=== PATIENT | female | born 1935 | race Caucasian/White ===

== ENCOUNTER → 2017-04-24 | Outpatient (CLI) | payer MEDICARE ==
--- NOTE | 2017-04-25 10:11 | ECHOF ---
Referral Reason:A Fib Z47.2 MEASUREMENTS -------- HEIGHT: 162.6 cm WEIGHT: 71.2 kg BP: IVSd: 1.1 cm (0.6 - 1.1) LVIDd: 4.9 cm (3.9 - 5.3) LVPWd: 0.7 cm (0.6 - 1.1) IVSs: 1.4 cm LVIDs: 3.7 cm LVPWs: 0.8 cm LA Diam: 3.9 cm (2.7 - 3.8) LAESV Index (A-L): 50.47 ml/m Ao Diam: 3.0 cm (2.0 - 3.7) AV Cusp: 1.8 cm (1.5 - 2.6) LA Diam: 3.9 cm (2.7 - 3.8) MV EXCURSION: 21.996 mm (> 18.000) MV EF SLOPE: 56 mm/s (70 - 150) EPSS: 0.3 cm MV E Bob: 0.95 m/s MV DecT: 88 ms MV A Bob: 0.34 m/s MV E/A Ratio: 2.78 AR PHT: 463 ms RAP: 5.00 mmHg RVSP: 39.34 mmHg FINDINGS -------- Atrial fibrillation. This was a technically good study. LV size, wall thickness and systolic function are normal, with an EF greater than 55%. The right ventricle is normal in size. LA is severely dilated >40 ml/m2 The right atrial size is normal. There is mild aortic valve sclerosis. There is mild aortic regurgitation. The mitral valve leaflets are mildly thickened. Moderate mitral regurgitation is present. Mild tricuspid regurgitation present. There is mild pulmonary hypertension. The right ventricular systolic pressure, as measured by Doppler, is 39.34mmHg. There is no pulmonic regurgitation present. The aortic root size is normal. There is no pericardial effusion. CONCLUSIONS -------- 1. LV size, wall thickness and systolic function are normal, with an EF greater than 55%. 2. LA is severely dilated >40 ml/m2 3. There is mild aortic valve sclerosis. 4. There is mild aortic regurgitation. 5. The mitral valve leaflets are mildly thickened. 6. Moderate mitral regurgitation is present. 7. Mild tricuspid regurgitation present. 8. There is mild pulmonary hypertension. 9. The right ventricular systolic pressure, as measured by Doppler, is 39.34mmHg. 10. There is no pulmonic regurgitation present. ORDER TAKERS SUPERVISOR: Cele Hinds RDCS
== END | disposition home or self-care (01) ==
LOC: RADECHMAIN 13:45
PROVIDERS: ATTEND Internal Medicine
DX: I08.3 Combined rheumatic disorders of mitral, aortic and tricuspid valves (principal); I48.91 Unspecified atrial fibrillation; I10 Essential (primary) hypertension; I27.20 Pulmonary hypertension, unspecified
CPT/HCPCS: 93306

== ENCOUNTER 2019-10-07 13:09 | Emergency (ER) | payer MEDICARE ==
[2019-10-07 13:18] VITALS: RESP 18; TEMP 97.9
[2019-10-07] MEDS ORDERED: KETOROLAC 30 MG/ML 1 ML VIAL IM STA (13:58)
--- NOTE | 2019-10-07 14:52 | XR ---
EXAMINATION TYPE: XR wrist complete LT DATE OF EXAM: 10/07/2019 CLINICAL HISTORY: Fall injury with pain. TECHNIQUE: Frontal, lateral , scaphoid, and oblique images of the left wrist are obtained. COMPARISON: Prior left wrist x-ray September 27, 2015 FINDINGS: Demineralization is redemonstrated. Interval healing of comminuted intra-articular fracture distal radial meta-epiphysis. New scapholunate joint widening suggests possible chronic ligamentous injury. Volar angulation of distal radius without new acute fracture. Moderate to advanced narrowing base of first metacarpal redemonstrated. Overlying soft tissue is unremarkable. IMPRESSION: As above.
--- NOTE | 2019-10-07 14:53 | XR ---
EXAMINATION TYPE: XR Hip Complete LT DATE OF EXAM: 10/07/2019 CLINICAL HISTORY: Fall injury with pain. TECHNIQUE: AP and frogleg views of the left hip are obtained. COMPARISON: None. FINDINGS: Slightly suboptimal due to patient's large body habitus. There is no acute fracture/disloca tion evident in the left hip. Mild to moderate axial joint space loss with mild to moderate acetabula r spurring. Overlying zipper is noted. IMPRESSION: There is no acute fracture or dislocation in the left hip.
--- NOTE | 2019-10-07 14:55 | XR ---
EXAMINATION TYPE: XR ribs LT w pa chest xray DATE OF EXAM: 10/07/2019 CLINICAL HISTORY: Chest and left-sided rib pain after fall injury. TECHNIQUE: Single frontal view of the chest is obtained. A frontal and oblique images of the left-shayy ed ribs. COMPARISON: Chest x-ray October 31, 2011. FINDINGS: There is chronic parenchymal change without suspicious new focal air space opacity, pleura l effusion, or pneumothorax seen. The cardiac silhouette size remains enlarged with atherosclerotic and ectatic aorta. The osseous structures are demineralized. Underlying scoliosis is redemonstrated . Left axillary surgical clips again seen. Dedicated images of left-sided ribs show no acute displaced fracture. IMPRESSION: 1. Chronic parenchymal changes and cardiomegaly without acute pulmonary process. 2. No acute displaced left-sided rib fractures.
--- NOTE | 2019-10-07 15:17 | ED ---
Fall HPI - General Chief Complaint: Fall Stated Complaint: Fall Time Seen by Provider: 10/07/19 13:39 Source: patient, EMS Mode of arrival: EMS - History of Present Illness Initial Comments: Patient is an 84-year-old female presenting to the emergency Department with complaints of a fall. Patient states she was standing getting something out of her refrigerator and went to turn to throw something away when she feels like her feet slipped and she fell towards the left side. Patient states she hit the left side of her body onto the kitchen island as well as a door way. She is complaining of pain in the left side of her ribs as well as left arm and left hip pain. She admits to previous bilateral knee replacements. She denies hitting her head or loss of consciousness. She denies being dizzy at the time. She has no other complaints at this time. - Related Data Home Medications Medication Instructions Recorded Confirmed Atenolol [Tenormin] 50 mg PO BID 09/27/15 09/27/15 Cholecalciferol [Vitamin D3] 2,000 unit PO DAILY 09/27/15 09/27/15 Losartan-Hctz 50-12.5 mg [Hyzaar 1 tab PO DAILY 09/27/15 09/27/15 50-12.5] Previous Rx's Medication Instructions Recorded HYDROcodone/APAP 5-325MG [[place] 1 tab PO Q6HR PRN #30 tab 09/27/15 5-325] Allergies Allergy/AdvReac Type Severity Reaction Status Date / Time Penicillins Allergy Rash/Hives Verified 10/07/19 13:18 Sulfa (Sulfonamide Allergy Rash/Hives Verified 10/07/19 13:18 Antibiotics) Review of Systems ROS Statement: Those systems with pertinent positive or pertinent negative responses have been documented in the HPI. ROS Other: All systems not noted in ROS Statement are negative. Past Medical History Past Medical History: Hypertension Additional Past Medical History / Comment(s): BREAST CANCER History of Any Multi-Drug Resistant Organisms: None Reported Past Surgical History: Breast Surgery, Hysterectomy, Tubal Ligation Additional Past Surgical History / Comment(s): LEFT/Right KNEE SURGERY, bilateral mastectomy Past Psychological History: No Psychological Hx Reported Smoking Status: Never smoker Past Alcohol Use History: None Reported Past Drug Use History: None Reported General Exam - General Exam Comments Initial Comments: GENERAL: Well-appearing, well-nourished and in no acute distress. HEAD: Atraumatic, normocephalic. EYES: Pupils equal round and reactive to light, extraocular movements intact, sclera anicteric, conjunctiva are normal. ENT: TMs normal, nares patent, oropharynx clear without exudates. Moist mucous membranes. NECK: Normal range of motion, supple without lymphadenopathy or JVD. LUNGS: Breath sounds clear to auscultation bilaterally and equal. No wheezes rales or rhonchi. Mild pain to palpation of the left side of the ribs. HEART: Regular rate and rhythm without murmurs, rubs or gallops. ABDOMEN: Soft, nontender, normoactive bowel sounds. No guarding, no rebound. No masses appreciated. : Deferred EXTREMITIES: Patient has mild pain and bruising along the left wrist over the ulnar aspect. Patient has full wrist range of motion, no swelling. Patient has full range of motion of the left shoulder. Mild pain with palpation of the lateral aspect of the left hip. Patient does have some increase in pain with hip flexion. She is neurovascular intact in upper and lower extremities. NEUROLOGICAL: Cranial nerves II through XII grossly intact. Normal speech. PSYCH: Normal mood, normal affect. SKIN: Warm, Dry, normal turgor, no rashes or lesions noted. Limitations: no limitations Course Vital Signs 10/07/19 10/07/19 10/07/19 13:14 14:43 15:24 Temperature 97.9 F Pulse Rate 55 L 67 65 Respiratory 18 18 18 Rate Blood Pressure 182/88 193/107 174/87 O2 Sat by Pulse 97 98 94 L Oximetry 10/07/19 16:50 Temperature Pulse Rate 78 Respiratory 18 Rate Blood Pressure 175/86 O2 Sat by Pulse 98 Oximetry Medical Decision Making - Medical Decision Making Patient is an 84-year-old female here for a fall today. Patient hit the left side of her body onto her Island as well as the wall. There is no head injury, no loss of consciousness, no dizziness. X-rays of the left side of the ribs, PA chest, left wrist, left hip reveal no acute fractures/dislocations. Patient was given a little bit of Toradol. She was able to stand up and walk around her room with only mild soreness. She is stable for discharge. I did recommend Tylenol or short course of anti-inflammatories for her pain. She is in agreement with this plan of care. Return parameters were discussed with the patient she verbalized understanding. Case discussed with Dr. Amin. - Lab Data Lab Results 10/07/19 Range/Units 15:25 Urine Color Light Yellow Urine Appearance Clear (Clear) Urine pH 7.0 (5.0-8.0) Ur Specific [place] 1.010 (1.001-1.035) Urine Protein Trace H (Negative) Urine Glucose (UA) Negative (Negative) Urine Ketones Negative (Negative) Urine Blood Large H (Negative) Urine Nitrite Negative (Negative) Urine Bilirubin Negative (Negative) Urine Urobilinogen <2.0 (<2.0) mg/dL Ur Leukocyte Esterase Negative (Negative) Urine RBC 143 H (0-5) /hpf Urine WBC 1 (0-5) /hpf Ur Squamous Epith Cells 5 H (0-4) /hpf Urine Bacteria Rare H (None) /hpf Urine Mucus Rare H (None) /hpf Disposition Clinical Impression: Fall, Contusion of rib on left side, Left hip pain, Contusion of left wrist Disposition: HOME SELF-CARE Condition: Stable Instructions (If sedation given, give patient instructions): Rib Contusion (ED) Additional Instructions: Please return to the Emergency Department if symptoms worsen or any other concerns. May take Motrin for discomfort or Tylenol. Follow-up with PCP. Is patient prescribed a controlled substance at d/c from ED?: No Referrals: Ahmet Diaz MD [Primary Care Provider] - 1-2 days
[2019-10-07 15:39] LABS: Appearance,Urine Clear (Clear); Bacteria,Urine Rare /hpf; Bilirubin,Urine Negative (Negative); Blood,Urine Large (Negative); Color,Urine Light Yellow; Glucose,Urine (UA) Negative (Negative); Ketones,Urine Negative (Negative); Leukocyte Esterase,Urine Negative (Negative); Mucus,Urine Rare /hpf; Nitrite,Urine Negative (Negative); Protein,Urine Trace (Negative); RBC,Urine 143 /hpf (0-5); Squamous Epithelial Cell,Urine 5 /hpf (0-4); Urobilinogen,Urine <2.0 mg/dL (<2.0); WBC,Urine 1 /hpf (0-5)
[2019-10-07] MEDS ORDERED: traMADol 50 MG STARTER PACK 3 TAB BTL PO STA (15:45)
[2019-10-07 16:51] VITALS: BP 175/86; PULSE 78
== END 2019-10-07 16:50 | disposition home or self-care (01) ==
LOC: EC 13:09
DX: S20.212A Contusion of left front wall of thorax, initial encounter (principal); S60.212A Contusion of left wrist, initial encounter; M25.552 Pain in left hip; I10 Essential (primary) hypertension; Z79.899 Other long term (current) drug therapy; Z88.0 Allergy status to penicillin; Z88.2 Allergy status to sulfonamides; Z85.3 Personal history of malignant neoplasm of breast; Z96.653 Presence of artificial knee joint, bilateral; Z90.13 Acquired absence of bilateral breasts and nipples; W01.198A Fall on same level from slipping, tripping and stumbling with subsequent striking against other object, initial encounter; Y93.89 Activity, other specified; Y92.000 Kitchen of unspecified non-institutional (private) residence as the place of occurrence of the external cause
CPT/HCPCS: 96372; 99284; 81001; 71101; 73502; 73110; J1885

== ENCOUNTER → 2020-05-12 | Outpatient (CLI) | payer MEDICARE ==
--- NOTE | 2020-05-12 08:32 | US ---
EXAMINATION TYPE: US abdomen complete DATE OF EXAM: 05/12/2020 COMPARISON: NONE CLINICAL HISTORY: R10.9 ABD PAIN. On/off abdomen pain x couple months EXAM MEASUREMENTS: Liver Length: 13.1 cm Gallbladder Wall: 0.2 cm CBD: 0.3 cm Spleen: 8.7 cm Right Kidney: 9.8 x 4.2 x 4.3 cm Left Kidney: 9.1 x 4.5 x 3.8 cm Pancreas: wnl Liver: mildly heterogeneous Gallbladder: 0.8cm mobile echogenic focus Evidence for sonographic Lozoya's sign: yes CBD: wnl Spleen: visualized portions wnl, limited by overlying bowel gas Right Kidney: fullness of renal pelvis, multiple cystic areas with largest measuring 0.9cm Left Kidney: visualized portions wnl, inferior pole limited by overlying bowel gas Upper IVC: wnl Abd Aorta: wnl The visualized liver is slightly heterogeneous. The intrahepatic portion of the IVC and visualized a bdominal aorta are within normal limits. There is 8mm nonshadowing mobile focus likely reflecting ga llstone within gallbladder lumen. No pericholecystic fluid or abnormal gallbladder wall thickening Co mmon bile duct is unremarkable. The visualized portions of the pancreas are homogenous. The spleen is unremarkable. Kidneys are symmetric and free of hydronephrosis. No renal lesions are seen. IMPRESSION: Single intraluminal gallstone without secondary ultrasound evidence for acute cholecystit is.
== END | disposition home or self-care (01) ==
LOC: RADUSWWP 07:28
PROVIDERS: ATTEND Internal Medicine
DX: K80.20 Calculus of gallbladder without cholecystitis without obstruction (principal)
CPT/HCPCS: 76700

== ENCOUNTER → 2020-09-27 | Outpatient (CLI) | payer MEDICARE ==
[2020-09-28 18:58] LABS: African American GFR (CKD) 48.1 (60.0-200.0); Anion Gap 9.4 mmol/L (4.00-12.00); Calcium 10.8 mg/dL (8.7-10.3); Carbon Dioxide 28.6 mmol/L (21.6-31.8); Non-African American GFR(CKD) 41.5 (60.0-200.0); Potassium 4.7 mmol/L (3.5-5.5)
== END | disposition home or self-care (01) ==
LOC: LABWHC1 12:18
PROVIDERS: ATTEND Nurse Practitioner Adult Health
DX: I10 Essential (primary) hypertension (principal)
CPT/HCPCS: 36415; 80048

== ENCOUNTER → 2020-11-02 | Outpatient (CLI) | payer MEDICARE | END | disposition home or self-care (01) | LOC: LABWHC1 16:18 | PROVIDERS: ATTEND Internal Medicine | DX: Z20.822 Contact with and (suspected) exposure to COVID-19 (principal); J32.9 Chronic sinusitis, unspecified | CPT/HCPCS: U0003; C9803; U0005 ==

== ENCOUNTER → 2021-01-01 | Outpatient (CLI) | payer MEDICARE ==
[2021-01-01 15:18] LABS: African American GFR (CKD) 48.1 (60.0-200.0); Anion Gap 8.9 mmol/L (4.00-12.00); Carbon Dioxide 29.1 mmol/L (21.6-31.8); Non-African American GFR(CKD) 41.5 (60.0-200.0); Potassium 3.8 mmol/L (3.5-5.5)
== END | disposition home or self-care (01) ==
LOC: LABWHC1 10:39
PROVIDERS: ATTEND Internal Medicine Interventional Cardiology
DX: I48.21 Permanent atrial fibrillation (principal)
CPT/HCPCS: 36415; 80051; 82565; 84520

== ENCOUNTER 2021-03-08 10:39 | Emergency (ER) | payer MEDICARE ==
--- NOTE | 2021-03-08 11:38 | ED ---
General Adult HPI - General Chief complaint: Head Injury Stated complaint: Fall/Head Injury Time Seen by Provider: 03/08/21 10:50 Source: patient, family, RN notes reviewed Mode of arrival: ambulatory Limitations: no limitations - History of Present Illness Initial comments: Patient is an 85-year-old female with history of A. fib, on Xarlto, presenting to the emergency department for a recheck. Patient states she had a fall about 11 days ago. She stepped over a garbage can lid and lost her balance and fell mostly onto her left side. She did fall outside, landed on cement. She is unsure if she lost consciousness or not. She seems to remember everything that happened. She did remember hitting the left side of her ribs as well as her head. She had a small cut on her left temporal area. Patient states over the next few days she started developing soreness of her left ribs and was concerned for rib injury. Yesterday she was coughing and it did cough out just a tiny bit of blood in her phlegm and got concerned. Patient has also been having intermittent headaches on the left side of her forehead where she hit. He denies any dizziness or lightheadedness, no vision changes. She was complaining a little bit of neck soreness when she fell but no neck pain today. No shortness of breath, no abdominal pain, no nausea or vomiting. She denies any pain in her lower extremities. She has no further complaints at this time. Her vitals are stable upon arrival. - Related Data Home Medications Medication Instructions Recorded Confirmed Cholecalciferol [Vitamin D3] 2,000 unit PO DAILY 09/27/15 09/27/15 Losartan-Hctz 50-12.5 mg [Hyzaar 1 tab PO DAILY 09/27/15 09/27/15 50-12.5] atenoloL [Tenormin] 50 mg PO BID 09/27/15 09/27/15 Previous Rx's Medication Instructions Recorded HYDROcodone/APAP 5-325MG [[place] 1 tab PO Q6HR PRN #30 tab 09/27/15 5-325] Allergies Allergy/AdvReac Type Severity Reaction Status Date / Time Penicillins Allergy Rash/Hives Verified 03/08/21 10:42 Sulfa (Sulfonamide Allergy Rash/Hives Verified 03/08/21 10:42 Antibiotics) Review of Systems ROS Statement: Those systems with pertinent positive or pertinent negative responses have been documented in the HPI. ROS Other: All systems not noted in ROS Statement are negative. Past Medical History Past Medical History: Atrial Fibrillation, Hypertension Additional Past Medical History / Comment(s): BREAST CANCER History of Any Multi-Drug Resistant Organisms: None Reported Past Surgical History: Breast Surgery, Hysterectomy, Tubal Ligation Additional Past Surgical History / Comment(s): LEFT/Right KNEE SURGERY, bilateral mastectomy Past Psychological History: No Psychological Hx Reported Smoking Status: Never smoker Past Alcohol Use History: None Reported Past Drug Use History: None Reported General Exam - General Exam Comments Initial Comments: GENERAL: Patient is well-developed and well-nourished. Patient is nontoxic and in no acute distress. HEAD: Atraumatic, normocephalic. There is no hematoma. EYES: Pupils equal round and reactive to light, extraocular movements intact, sclera anicteric, conjunctiva are normal. Eyelids were unremarkable. ENT: TMs normal, nares patent, oropharynx clear without exudates. Moist mucous membranes. NECK: Normal range of motion, supple without lymphadenopathy or JVD. No midline tenderness. LUNGS: Unlabored respirations. Breath sounds clear to auscultation bilaterally and equal. No wheezes rales or rhonchi. HEART: Regular rate and rhythm without murmurs, rubs or gallops. ABDOMEN: Soft, nontender, normoactive bowel sounds. No guarding, no rebound. No masses appreciated. : Deferred MUSCULOSKELETAL: Normal extremities with adequate strength and normal range of motion, no pitting or edema. No clubbing or cyanosis. She has some mild discomfort over the left anterior and lateral upper ribs. NEUROLOGICAL: Patient is alert and oriented x 3. Motor and sensory are also intact. Cranial nerves II through XII grossly intact. Symmetrical smile. Normal speech, normal gait. PSYCH: Normal mood, normal affect. SKIN: Warm, Dry, normal turgor, no rashes. Patient has an old healing yellowish colored bruise on the left bahai area, she has a has a healing very small 0.5 cm laceration to the same area. Signs of infection, no tenderness to this area. Limitations: no limitations Course Vital Signs 03/08/21 10:42 Temperature 98.4 F Pulse Rate 70 Respiratory 18 Rate Blood Pressure 158/84 O2 Sat by Pulse 97 Oximetry Medical Decision Making - Medical Decision Making Patient is an 85-year-old female here for some left-sided rib pain and some intermittent headaches after she fell about 11 days ago. She is on Xarlto secondary to A. fib. Other than some mild left-sided rib pain, she has no other acute findings on exam, no acute neuro deficits. Vitals are stable. CT of the head and C-spine showed no acute intracranial process, no acute fracture of the C-spine. X-rays of left ribs and chest reveal no displaced fractures. The resting currently. I discussed the patient she could have had a mild concussion from her fall. I recommended Tylenol and/or Motrin for any discomfort, continue with deep breathing exercises to prevent pneumonia for her rib contusions. She is agreeable with plan of care and is stable for discharge. She'll follow up with her primary care. Case discussed with Dr. Amin. Disposition Clinical Impression: Fall, Contusion of rib on left side, Headache Disposition: HOME SELF-CARE Condition: Stable Instructions (If sedation given, give patient instructions): Rib Contusion (ED) Additional Instructions: Please return to the Emergency Department if symptoms worsen or any other concerns. May take Tylenol and/or Motrin for headaches or rib pain. Recommend deep breathing exercises every hour to help prevent pneumonia. Follow-up with your primary care. Is patient prescribed a controlled substance at d/c from ED?: No Referrals: Hawa Tamayo MD [Primary Care Provider] - 1-2 days Time of Disposition: 12:46
--- NOTE | 2021-03-08 12:19 | XR ---
EXAMINATION TYPE: XR ribs LT w pa chest xray DATE OF EXAM: 03/08/2021 COMPARISON: NONE HISTORY: Pain TECHNIQUE: Single view of the chest 3 views of the ribs are submitted. FINDINGS: Chronic senescent parenchymal change. Cardiomegaly. No Evidence for pneumothorax. No evide nce for focal contusion. Mediastinal structures are midline. Evaluation of the ribs fails to demons trate evidence for displaced rib fracture or secondary sign of rib fracture. IMPRESSION: No evidence for displaced fracture of the left-sided ribs.
--- NOTE | 2021-03-08 12:23 | CT ---
EXAMINATION TYPE: CT brain paula avalos DATE OF EXAM: 03/08/2021 COMPARISON: 09/27/2015 HISTORY: Fall/head injury CT DLP: 1302.[address] of the brain was performed. The ventricles, basal cisterns and sulci overlying the cerebral convexities demonstrate mild enlargem ent. Low-density subdural fluid is seen bilaterally felt to reflect small bilateral subdural hygroma s. No acute subdural hematoma is present at this time. There is no evidence for intracranial hemorrhage or sulcal effacement. There is decreased attenuatio n about the periventricular white matter and deep white matter of both cerebral hemispheres, compatib le with chronic small vessel ischemia. No mass effects are seen. If symptoms persist consider MRI. Osseous calvarium is intact. IMPRESSION: 1. Age related atrophic and chronic small vessel ischemic change without acute intracranial process seen at this time. Low-density subdural fluid is seen bilaterally felt to reflect small bilateral richmond bdural hygromas. No acute subdural hematoma is present at this time. CT Cervical Spine: Unenhanced CT of the cervical spine was performed with bone and soft tissue window settings submitted . Coronal and sagittal reconstruction is obtained. There is normal alignment and prevertebral soft tissues. No evidence for acute cervical fracture . Scattered degenerative disc disease and spondylosis. Biapical scarring. IMPRESSION: 1. No evidence for acute fracture or subluxation of the cervical spine.
[2021-03-08 12:45] VITALS: BP 156/75; PULSE 71; RESP 20; TEMP 97.7
== END 2021-03-08 13:00 | disposition home or self-care (01) ==
LOC: EC 10:39
DX: S20.212A Contusion of left front wall of thorax, initial encounter (principal); R51.9 Headache, unspecified; I10 Essential (primary) hypertension; I48.91 Unspecified atrial fibrillation; W01.0XXA Fall on same level from slipping, tripping and stumbling without subsequent striking against object, initial encounter; Z88.0 Allergy status to penicillin; Z88.2 Allergy status to sulfonamides; Z79.899 Other long term (current) drug therapy
CPT/HCPCS: 70450; 72125; 99284

== ENCOUNTER → 2021-04-26 | Outpatient (CLI) | payer MEDICARE | END | disposition home or self-care (01) | LOC: LABWHC1 11:03 | PROVIDERS: ATTEND Internal Medicine | DX: J32.9 Chronic sinusitis, unspecified (principal) | CPT/HCPCS: U0003; C9803; U0005 ==

== ENCOUNTER → 2021-05-18 | Outpatient (CLI) | payer MEDICARE ==
[2021-05-18 13:02] LABS: Basophils % (A) 1 %; Eosinophils % (A) 0 %; HCT 34.9 % (34.0-46.0); HGB 11.4 gm/dL (11.4-16.0); Lymphocytes # (A) 0.6 k/uL (1.0-4.8); Lymphocytes % (A) 9 %; MCH 33.6 pg (25.0-35.0); MCHC 32.7 g/dL (31.0-37.0); MCV 102.7 fL (80.0-100.0); Macrocytosis Slight; Mean Platelet Volume 8.6; Monocytes # (A) 0.4 k/uL (0-1.0); Monocytes % (A) 5 %; Neutrophils # (A) 5.5 k/uL (1.3-7.7); Neutrophils % (A) 84 %; Platelet Count 243 k/uL (150-450); RDW 13.9 % (11.5-15.5); WBC 6.5 k/uL (3.8-10.6)
== END | disposition home or self-care (01) ==
LOC: LABWHC1 10:58
PROVIDERS: ATTEND Internal Medicine
DX: D64.9 Anemia, unspecified (principal)
CPT/HCPCS: 36415; 82272; 85025

== ENCOUNTER → 2022-04-15 | Outpatient (CLI) | payer MEDICARE ==
[2022-04-15 16:15] LABS: Anion Gap 13.5 mmol/L (10.00-18.00); BUN/Creat Ratio 28.2 Ratio (12.00-20.00); Blood Urea Nitrogen 39.2 mg/dL (9.0-27.0); Calcium 10.6 mg/dL (8.7-10.3); Carbon Dioxide 25.8 mmol/L (20.0-27.5); Non-African American GFR(CKD) 34.5 (60.0-200.0); Potassium 4.5 mmol/L (3.5-5.5)
== END | disposition home or self-care (01) ==
LOC: LABWHC1 09:35
PROVIDERS: ATTEND Internal Medicine Interventional Cardiology
DX: R60.0 Localized edema (principal)
CPT/HCPCS: 36415; 80048; 83880

== ENCOUNTER → 2022-05-14 | Outpatient (CLI) | payer MEDICARE ==
[2022-05-14 15:30] LABS: African American GFR (CKD) 43.3 (60.0-200.0); Anion Gap 9.3 mmol/L (10.00-18.00); BUN/Creat Ratio 21.31 Ratio (12.00-20.00); Blood Urea Nitrogen 27.7 mg/dL (9.0-27.0); Calcium 10.4 mg/dL (8.7-10.3); Carbon Dioxide 28.5 mmol/L (20.0-27.5); Non-African American GFR(CKD) 37.4 (60.0-200.0); Potassium 4.2 mmol/L (3.5-5.5)
== END | disposition home or self-care (01) ==
LOC: LABWHC1 10:53
PROVIDERS: ATTEND Nurse Practitioner Adult Health
DX: I12.9 Hypertensive chronic kidney disease with stage 1 through stage 4 chronic kidney disease, or unspecified chronic kidney disease (principal); N18.9 Chronic kidney disease, unspecified
CPT/HCPCS: 36415; 80048

== ENCOUNTER 2024-03-19 21:08 | Emergency (ER) | payer MEDICARE ==
[2024-03-19 21:13] VITALS: TEMP 97.9
--- NOTE | 2024-03-19 21:46 | ED ---
Fall HPI - General Chief Complaint: Fall Stated Complaint: Fall-Head Injury-Blood thinners Time Seen by Provider: 03/19/24 21:37 Source: patient, RN notes reviewed, old records reviewed Mode of arrival: wheelchair Limitations: no limitations - History of Present Illness Initial Comments: This is an 88-year-old female to the ER today. She is presenting for evaluation in regards to a fall. Fall up stairs fall going up the stairs with head injury. Laceration minor above left eyelid on blood thinners, Xarelto for atrial fibrillation. 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 Witnessed: yes, by family Place Fall Occurred: home Loss of Consciousness: none Prolonged Down Time?: no Symptoms Prior to Fall: none Location: head, face Severity: moderate Quality: sharp Context: tripped/slipped Associated Symptoms: denies - Related Data Home Medications Medication Instructions Recorded Confirmed Benzonatate [Tessalon Perle] 200 mg PO TID PRN 01/26/22 01/27/22 Chlorphen/Dm/Acetaminophen/GG 1 tab PO Q6H PRN 01/26/22 01/26/22 [Coricidin Hbp Day-Night Pack] Cholecalciferol [Vitamin D3 (25 50 mcg PO DAILY 01/26/22 01/26/22 Mcg = 1000 Iu)] Cyanocobalamin (Vitamin B-12) 1,000 mcg PO DAILY 01/26/22 01/26/22 [Vitamin B-12] Fluticasone Nasal [place] [Flonase 2 spr EA NOSTRIL DAILY 01/26/22 01/26/22 Nasal [place]] Rivaroxaban [Xarelto] 15 mg PO HS 01/26/22 01/26/22 amLODIPine [Norvasc] 10 mg PO HS 01/26/22 01/26/22 clindamycin HCL 600 mg PO ONCE PRN 01/26/22 01/26/22 fluocinolone acetonide oiL 5 drops BOTH EARS DAILY PRN 01/26/22 01/27/22 [Dermotic] Previous Rx's Medication Instructions Recorded Losartan [Cozaar] 50 mg PO DAILY #30 tab 01/30/22 Allergies Allergy/AdvReac Type Severity Reaction Status Date / Time Penicillins Allergy Rash/Hives Verified 03/19/24 21:13 Sulfa (Sulfonamide Allergy Rash/Hives Verified 03/19/24 21:13 Antibiotics) Review of Systems ROS Statement: Those systems with pertinent positive or pertinent negative responses have been documented in the HPI. ROS Other: All systems not noted in ROS Statement are negative. Past Medical History Past Medical History: Atrial Fibrillation, Hypertension Additional Past Medical History / Comment(s): BREAST CANCER History of Any Multi-Drug Resistant Organisms: None Reported Past Surgical History: Breast Surgery, Hysterectomy, Tubal Ligation Additional Past Surgical History / Comment(s): LEFT/Right KNEE SURGERY, bilateral mastectomy Past Anesthesia/Blood Transfusion Reactions: No Reported Reaction Past Psychological History: No Psychological Hx Reported Smoking Status: Never smoker Past Alcohol Use History: None Reported Past Drug Use History: None Reported - Past Family History Father Family Medical History: Congestive Heart Failure (CHF), Coronary Artery Disease (CAD) Mother Family Medical History: Cancer General Exam Limitations: no limitations General appearance: alert, in no apparent distress Head exam: Present: atraumatic, normocephalic, normal inspection Eye exam: Present: normal appearance, PERRL, EOMI. Absent: scleral icterus, conjunctival injection, periorbital swelling ENT exam: Present: normal exam, mucous membranes moist Neck exam: Present: normal inspection. Absent: tenderness, meningismus, lymphadenopathy Respiratory exam: Present: normal lung sounds bilaterally. Absent: respiratory distress, wheezes, rales, rhonchi, stridor Cardiovascular Exam: Present: regular rate, normal rhythm, normal heart sounds. Absent: systolic murmur, diastolic murmur, rubs, gallop, clicks GI/Abdominal exam: Present: soft, normal bowel sounds. Absent: distended, tenderness, guarding, rebound, rigid Extremities exam: Present: normal inspection, full ROM, normal capillary refill. Absent: tenderness, pedal edema, joint swelling, calf tenderness Back exam: Present: normal inspection Neurological exam: Present: alert, oriented X3, CN II-XII intact Psychiatric exam: Present: normal affect, normal mood Skin exam: Present: warm, dry, intact, normal color. Absent: rash Course Vital Signs 03/19/24 03/20/24 21:09 01:27 Temperature 97.9 F Pulse Rate 88 82 Respiratory 18 17 Rate Blood Pressure 158/74 153/105 O2 Sat by Pulse 95 93 L Oximetry - Reevaluation(s) Reevaluation #1: 03/19/24 22:20 Medical records reviewed Reevaluation #2: 03/19/24 22:20 Symptoms unchanged Reevaluation #3: 03/19/24 22:20 Patient informed of results and questions answered Reevaluation #4: Was pt. sent in by a medical professional or institution (, [facility], [employer], urgent care, hospital, or shelter...) When possible be specific @ -no Did you speak to anyone other than the patient for history (EMS, parent, family, police, friend...)? What history was obtained from this source @ -no Did you review nursing and triage notes (agree or disagree)? Why? @ -agree Are old charts reviewed (outside hosp., previous admission, EMS record, old EKG, old radiological studies, urgent care reports/EKG's, shelter records)? Report findings @ -yes Differential Diagnosis (chest pain, altered mental status, abdominal pain women, abdominal pain men, vaginal bleeding, weakness, fever, dyspnea, syncope, heada cinda, dizziness, GI bleed, back pain, seizure, CVA, palpatations, mental health, musculoskeletal)? @ -prior EKG interpreted by me (3pts min.). @ -yes X-rays interpreted by me (1pt min.). @ -no CT interpreted by me (1pt min.). @ -yes negative for acute disease U/S interpreted by me (1pt. min.). @ -no What testing was considered but not performed or refused? (CT, X-rays, U/S, labs)? Why? @ -none What meds were considered but not given or refused? Why? @ -none Did you discuss the management of the patient with other professionals (professionals i.e. , [facility], [facility], lab, RT, psych nurse, social service technician, pattern changer, teacher, chief client officer, telephonic nurse case manager)? Give summary @ -no Was smoking cessation discussed for >3mins.? @ -no Was critical care preformed (if so, how long)? @ -no Were there social determinants of health that impacted care today? How? (Homelessness, low income, unemployed, alcoholism, drug addiction, transportation, low edu. Level, literacy, decrease access to med. care, shelter, rehab)? @ -none Was there de-escalation of care discussed even if they declined (Discuss DNR or withdrawal of care, Hospice)? DNR status @ -no What co-morbidities impacted this encounter? (DM, HTN, Smoking, COPD, CAD, Cancer, CVA, ARF, Chemo, Hep., AIDS, mental health diagnosis, sleep apnea, morbid obesity)? @ -none Was patient admitted / discharged? Hospital course, mention meds given and rou te, prescriptions, significant lab abnormalities, going to OR and other pertinent info. @ - 88 female to ER for evaluation of fall with head injury on Xarelto, patient has laceration to left eyebrow repaired. Patient can be discharged home Discharge Undiagnosed new problem with uncertain prognosis? @ -no Drug Therapy requiring intensive monitoring for toxicity (Heparin, Nitro, Insulin, Cardizem)? @ -no Were any procedures done? @ -no Diagnosis/symptom? @ -Forehead laceration fall on Xarelto Acute, or Chronic, or Acute on Chronic? @ -Acute Uncomplicated (without systemic symptoms) or Complicated (systemic symptoms)? @ -Complicated Side effects of treatment? @ -no Exacerbation, Progression, or Severe Exacerbation? @ -exacerbation Poses a threat to life or bodily function? How? (Chest pain, [place], [place], pneumonia, PE, COPD, DKA, ARF, appy, cholecystitis, CVA, Diverticulitis, Homicidal, Suicidal, threat to staff... and all critical care pts) @ -yes fall on Xarelto with extremes of age Reevaluation #5: Differential Headache: Migraine, tension, cluster, carbon monoxide, central venous thrombosis, pension karma temporal arteritis, acute closure glaucoma, intercranial hemorrhage, mastoiditis, sinusitis, head injury, this is not meant to be an all-inclusive list. Procedures - Laceration Laceration #1 Consent Obtained: verbal consent Indication: laceration Site: face Size (cm): 1 Description: linear Depth: simple, single layer Size of Sutures: other (dermabond) Medical Decision Making - Medical Decision Making 88 female to ER for evaluation of fall with head injury on Xarelto, patient has laceration to left eyebrow repaired. Patient can be discharged home - Radiology Data Radiology results: report reviewed (CT brain and C-spine facial bones negative for acute disease), image reviewed Disposition Clinical Impression: Fall, Laceration of eyebrow, left, Head injury Disposition: HOME SELF-CARE Condition: Good Instructions (If sedation given, give patient instructions): Fall Prevention for Older Adults (ED), Head Injury (ED) Is patient prescribed a controlled substance at d/c from ED?: No Referrals: Kali Summers MD [Primary Care Provider] - 1-2 days Time of Disposition: 00:05
--- NOTE | 2024-03-20 00:25 | CT ---
EXAM: CT Head Without Intravenous Contrast CLINICAL HISTORY: ITS.REASON CT Reason: fall TECHNIQUE: Axial computed tomography images of the head/brain without intravenous contrast. CTDI is 25.8 mGy and DLP is 650.7 mGy-cm. This CT exam was performed using one or more of the following dose reduction techniques: automated exposure control, adjustment of the mA and/or kV according to patient size, and/or use of iterative reconstruction technique. COMPARISON: Prior head CT from March 28, 2022. FINDINGS: This study is limited secondary to motion artifact. Brain: Remote ischemic injury of the left occipital lobe. No hemorrhage. Mild to moderate nonspecific white matter changes. No edema. Ventricles: Unremarkable. No ventriculomegaly. Bones/joints: Unremarkable. No acute fracture. Soft tissues: Unremarkable. Sinuses: Unremarkable as visualized. No acute sinusitis. Mastoid air cells: Unremarkable as visualized. No mastoid effusion. IMPRESSION: No evidence of acute intracranial pathology. EXAM: CT Cervical Spine Without Intravenous Contrast CLINICAL HISTORY: ITS.REASON CT Reason: fall TECHNIQUE: Axial computed tomography images of the cervical spine without intravenous contrast. CTDI is 8.7 mGy and DLP is 216.9 mGy-cm. This CT exam was performed using one or more of the following dose reduction techniques: automated exposure control, adjustment of the mA and/or kV according to patient size, and/or use of iterative reconstruction technique. COMPARISON: No relevant prior studies available. FINDINGS: Vertebrae: Unremarkable. No acute fracture. Diffuse osteopenia throughout the visualized bones. Discs/spinal canal/neural foramina: No acute findings. No spinal canal stenosis. Soft tissues: Bilateral thyroid nodules. IMPRESSION: No evidence of acute cervical spine pathology.
--- NOTE | 2024-03-20 00:27 | CT ---
EXAM: CT Head and Maxillofacial Without Intravenous Contrast CLINICAL HISTORY: ITS.REASON CT Reason: fall TECHNIQUE: Axial computed tomography images of the head/brain and face without intravenous contrast. CTDI is 25.8 mGy and DLP is 650.7 mGy-cm. This CT exam was performed using one or more of the following dose reduction techniques: automated exposure control, adjustment of the mA and/or kV according to patient size, and/or use of iterative reconstruction technique. COMPARISON: No relevant prior studies available. FINDINGS: Bones/joints: No acute fracture. Soft tissues: Moderate soft tissue sclera about the left lateral orbit with laceration. Sinuses: Unremarkable as visualized. No acute sinusitis. Mastoid air cells: Unremarkable as visualized. No mastoid effusion. Orbits: Unremarkable as visualized. IMPRESSION: No evidence of acute facial bone pathology.
[2024-03-20] MEDS: ACETAMINOPHEN TAB 500 MG TAB PO STA (01:14)
[2024-03-20] MEDS: TOPICAL SKIN ADHESIVE 1 EACH AMP TOPICAL ONE (01:26)
[2024-03-20 01:30] VITALS: BP 153/105; PULSE 82; RESP 17
== END 2024-03-20 01:30 | disposition home or self-care (01) ==
LOC: EC 21:08
CPT/HCPCS: 70450; 70486; 72125; 99283